=== PATIENT | male | born 2000 | race Caucasian/White ===

== ENCOUNTER 2023-07-01 18:59 | Emergency (ER) | payer SELFPAY ==
[~2023-07-01] VITALS: Ht 167.6 cm; Wt 68.0 kg
[2023-07-01 19:10] VITALS: BP 130/77; PULSE 106; RESP 17; TEMP 210.4; TEMP 99.1; O2SAT 96
== END 2023-07-01 19:47 ==
LOC: MED 18:59
DX: S13.4XXA Sprain of ligaments of cervical spine, initial encounter (principal); V49.88XA Car occupant (driver) (passenger) injured in other specified transport accidents, initial encounter; Y93.89 Activity, other specified; Y92.89 Other specified places as the place of occurrence of the external cause; Y99.8 Other external cause status
CPT/HCPCS: 81025; 96372; 99283; 99284